=== PATIENT | male | born 1965 | race Caucasian/White ===

== ENCOUNTER 2018-09-01 16:43 | Observation (INO) ==
[2018-09-01 17:15] VITALS: RESP 18; TEMP 98.4
[2018-09-01 18:40] VITALS: BP 111/59; PULSE 60
[2018-09-01] MEDS ORDERED: Sodium Chlor 0.9% Inj 500 ML IV.SIG SCH (20:00)
[2018-09-01 20:08] LABS: Baso % (Auto) 0.4 % (0.0-2.0); Eos # (Auto) 0.4 th/mm3 (0.0-0.4); Eos % (Auto) 6.2 % (0.0-4.0); Hematocrit 35.5 % (39.0-51.0); Hemoglobin 11.6 gm/dL (13.0-17.0); Lymph # (Auto) 1.8 th/mm3 (1.0-4.8); Lymph % (Auto) 25.9 % (9.0-44.0); Mean Corpuscular HGB Conc 32.8 % (32.0-36.0); Mean Corpuscular Hemoglobin 29.6 pg (27.0-34.0); Mean Corpuscular Volume 90.5 fL (80.0-100.0); Mean Platelet Volume 7.8 fL (7.0-11.0); Mono # (Auto) 1.1 th/mm3 (0.0-0.9); Mono % (Auto) 15.6 % (0.0-8.0); Neut # (Auto) 3.7 th/mm3 (1.8-7.7); Neut % (Auto) 51.9 % (16.0-70.0); Platelet Count 365 th/mm3 (150-450); Red Blood Count 3.92 mil/mm3 (4.50-5.90); Red Cell Distribution Width 13.7 % (11.6-17.2)
[2018-09-01 20:13] LABS: Chloride 100 meq/L (98-107); Potassium 3.7 meq/L (3.5-5.1); Sodium 138 meq/L (136-145)
[2018-09-01 20:15] LABS: Calcium 8.1 mg/dL (8.5-10.1)
[2018-09-01 20:16] LABS: Albumin 3.6 g/dL (3.4-5.0); Anion Gap 8 meq/L (5-15); Blood Urea Nitrogen 8 mg/dL (7-18); Carbon Dioxide 30.3 meq/L (21.0-32.0); Glucose,Random 91 mg/dL (74-106); Magnesium 2.2 mg/dL (1.5-2.5)
[2018-09-01 20:19] LABS: Alanine Aminotransferase 58 U/L (12-78); Aspartate Aminotransferase 52 U/L (15-37); Glomerular Filtration Rate 80 mL/min (>89)
[2018-09-01 20:21] VITALS: O2SAT 97
[2018-09-01 20:21] LABS: Bilirubin,Urine Negative (Negative); Clarity,Urine Clear (Clear); Color,Urine Yellow (Yellw/Straw); Glucose,Urine (UA) Negative (Negative); Leukocyte Esterase,Urine Negative (Negative); Nitrite,Urine Negative (Negative); Urobilinogen,Urine 0.2 mg/dL (Less than 2)
[2018-09-01 20:22] LABS: Alkaline Phosphatase 84 U/L (45-117)
[2018-09-01 20:26] LABS: Mucus,Urine Few /lpf (Occasional); RBC,Urine 0-3 /hpf (0-3); WBC,Urine 0-5 /hpf (0-5)
[2018-09-01] MEDS ORDERED: Sodium Chlor 0.9% Inj 500 ML IV.CONT SCH (21:00)
--- NOTE | 2018-09-01 21:04 | CT ---
EXAM DATE: 09/01/2018 8:54 PM EST AGE/SEX: 52 years / Male INDICATIONS: Altered mental status. Slurred speech. General malaise. CLINICAL DATA: This is the patient's initial encounter. Patient reports that signs and symptoms have been present for 1 day and indicates a pain score of 3/10. MEDICAL/SURGICAL HISTORY: None. None. RADIATION DOSE: 56.44 CTDI (mGy) COMPARISON: No prior exams available for comparison. TECHNIQUE: CT of the head without contrast. Using automated exposure control and adjustment of the mA and/or kV according to patient size, radiation dose was kept as low as reasonably achievable to ob tain optimal diagnostic quality images. DICOM format image data is available electronically for revi ew and comparison. FINDINGS: Cerebrum: The ventricles are normal for age. No evidence of midline shift, mass lesion, hemorrhage or acute infarction. No extraaxial fluid collections are seen. Posterior Fossa: The cerebellum and brainstem are intact. The 4th ventricle is midline. The cerebe llopontine angle is unremarkable. Extracranial: The visualized portion of the orbits is intact. Skull: The calvaria is intact. No evidence of skull fracture. CONCLUSION: 1. Unremarkable CT scan of the brain. . Electronically signed by: Azeem Ballard MD 09/01/2018 9:03 PM EST
--- NOTE | 2018-09-01 21:05 | ED ---
HPI General Chief Complaint: Altered Mental Status Stated Complaint: Hearing/Seeing Things/Forgetful x3Days Time Seen by Provider: 09/01/18 18:39 Source: patient Mode of arrival: ambulatory Limitations: no limitations History of Present Illness HPI narrative: Patient presents with history of bipolar disease and also chronic right lumbar pain with Dilaudid pump for treatment. In addition patient has increasing confusion and is not alert and has hallucinations for 3 days. Patient also has history of Lyme disease x3. Patient has no history of recent upper respiratory infection. However patient has had increased swelling of lower extremities for 3 days. No additional neurologic symptomatology. Related Data Home Medications Medication Instructions Recorded Confirmed aspirin [Aspir-Low] 81 mg PO DAILY 09/01/18 09/01/18 clonazepam 1 mg PO BID 09/01/18 09/01/18 clonidine HCl 0.1 mg PO BID 09/01/18 09/01/18 escitalopram oxalate [Lexapro] 10 mg PO DAILY 09/01/18 09/01/18 olanzapine 15 mg PO DAILY 09/01/18 09/01/18 testosterone cypionate 200 mg IM Q4W 09/01/18 09/01/18 Allergies Allergy/AdvReac Type Severity Reaction Status Date / Time divalproex sodium Allergy Unknown rash Verified 09/01/18 17:03 morphine Allergy Unknown rash Verified 09/01/18 17:03 Review of Systems ROS: all other systems reviewed are negative [facility] Medical History Medical History Presence of intrathecal pump (Acute) Bipolar 1 disorder (Acute) Lupus (Acute) Surgical History Surgical History H/O partial thyroidectomy (Acute) Hx of appendectomy (Acute) Hx of cholecystectomy (Acute) Social History Social History Substance History: No History of Abuse Smoking Status: Former smoker How Often Do You Have a Drink Containing Alcohol: Never Recent Travel in [facility] within the Last 8 Weeks: No Recent Out of Country Travel within the Last 8 Weeks: No Immunization History Tetanus Immunization: <5 Years Exam Narrative Exam Narrative: GENERAL: Alert and somewhat confused SKIN: Focused skin assessment warm/dry. HEAD: Atraumatic. Normocephalic. EYES: Pupils equal and round. No scleral icterus. No injection or drainage. ENT: No nasal bleeding or discharge. Mucous membranes pink and moist. NECK: Trachea midline. No JVD. CARDIOVASCULAR: Regular rate and rhythm. No murmur appreciated. RESPIRATORY: No accessory muscle use. Clear to auscultation. Breath sounds equal bilaterally. GASTROINTESTINAL: Abdomen soft, non-tender, nondistended. Hepatic and splenic margins not palpable. MUSCULOSKELETAL: No obvious deformities. No clubbing. No cyanosis. No edema. NEUROLOGICAL: Awake and alert. No obvious cranial nerve deficits. Motor grossly within normal limits. However patient has chronic right-sided lower extremity weakness and paresthesia. Speech impaired compared to normal, from 's bandage point. PSYCHIATRIC: Appropriate mood and affect; insight and judgment normal. Course Reevaluation(s) Reevaluation #1: Multiple evaluations with no significant change. However patient needed to be counseled for him to accept admission and further evaluation. is very supportive. Time: 21:25 Initial Documented Vital Signs Temperature 98.4 F 09/01/18 17:00 Pulse Rate 83 09/01/18 17:00 Respiratory Rate 18 09/01/18 17:00 Blood Pressure 139/78 09/01/18 17:00 Pulse Oximetry 97 09/01/18 17:00 Last Documented Vital Signs Temperature 98.4 F 09/01/18 17:00 Pulse Rate 60 09/01/18 18:40 Respiratory Rate 18 09/01/18 18:40 Blood Pressure 111/59 L 09/01/18 18:40 Pulse Oximetry 97 09/01/18 19:38 Critical Care Time Critical Care Time: Yes Total Critical Care Time: 60 Attestation: Multiple evaluations and evaluation secondary to new onset of altered mental status of 3 days duration. Medical Decision Making MDM Narrative Medical decision making narrative: Patient has significant altered mental status for 3 days. History of Lyme disease x3. Rule out CVA or infectious process. Less likely to be psychogenic in nature. High probability of infectious process secondary to residual of Lyme disease in patients spine Medical Screen Exam Complete: Yes Emergency Medical Condition: Yes Lab Data Result diagrams: 09/01/18 19:52 09/01/18 19:52 Lab Results 09/01/18 09/01/18 09/01/18 Range/Units 19:52 19:52 19:52 CBC w Diff Auto diff final WBC 7.0 (4.0-11.0) th/mm3 RBC 3.92 L (4.50-5.90) mil/mm3 Hgb 11.6 L (13.0-17.0) gm/dL Hct 35.5 L (39.0-51.0) % MCV 90.5 (80.0-100.0) fL MCH 29.6 (27.0-34.0) pg MCHC 32.8 (32.0-36.0) % RDW 13.7 (11.6-17.2) % Plt Count 365 (150-450) th/mm3 MPV 7.8 (7.0-11.0) fL Neut % (Auto) 51.9 (16.0-70.0) % Lymph % (Auto) 25.9 (9.0-44.0) % [place] % (Auto) 15.6 H (0.0-8.0) % Eos % (Auto) 6.2 H (0.0-4.0) % Baso % (Auto) 0.4 (0.0-2.0) % Neut # (Auto) 3.7 (1.8-7.7) th/mm3 Lymph # (Auto) 1.8 (1.0-4.8) th/mm3 [place] # (Auto) 1.1 H (0.0-0.9) th/mm3 Eos # (Auto) 0.4 (0.0-0.4) th/mm3 Baso # (Auto) 0.0 (0.0-0.2) th/mm3 WBC Differential . Differential Comment . Sodium 138 (136-145) meq/L Potassium 3.7 (3.5-5.1) meq/L Chloride 100 (98-107) meq/L Carbon Dioxide 30.3 (21.0-32.0) meq/L Anion Gap 8 (5-15) meq/L BUN 8 (7-18) mg/dL Creatinine 0.99 (0.60-1.30) mg/dL Estimated GFR 80 L (>89) mL/min Random Glucose 91 (74-106) mg/dL Calcium 8.1 L (8.5-10.1) mg/dL Magnesium 2.2 (1.5-2.5) mg/dL Total Bilirubin 0.6 (0.2-1.0) mg/dL AST 52 H (15-37) U/L ALT 58 (12-78) U/L Alkaline Phosphatase 84 (45-117) U/L Troponin I Less than 0.02 L (0.02-0.05) ng/mL B-Natriuretic Peptide 22 (0-100) pg/mL Total Protein 7.0 (6.4-8.2) g/dL Albumin 3.6 (3.4-5.0) g/dL Urine Color (Yellw/Straw) Urine Clarity (Clear) Urine pH (5.0-8.5) Ur Specific [place] (1.002-1.035) Urine Protein (Neg-Trace) mg/dL Urine Glucose (UA) (Negative) mg/dL Urine Ketones (Negative) mg/dL Urine Occult Blood (Negative) Urine Nitrate (Negative) Urine Bilirubin (Negative) Urine Urobilinogen (Less than 2) mg/dL Ur Leukocyte Esterase (Negative) Urine RBC (0-3) /hpf Urine WBC (0-5) /hpf Urine Mucus (Occasional) /lpf Micro UA Comment Ur Microscopic Review Urine Culture Comments 09/01/18 Range/Units 20:15 CBC w Diff WBC (4.0-11.0) th/mm3 RBC (4.50-5.90) mil/mm3 Hgb (13.0-17.0) gm/dL Hct (39.0-51.0) % MCV (80.0-100.0) fL MCH (27.0-34.0) pg MCHC (32.0-36.0) % RDW (11.6-17.2) % Plt Count (150-450) th/mm3 MPV (7.0-11.0) fL Neut % (Auto) (16.0-70.0) % Lymph % (Auto) (9.0-44.0) % [place] % (Auto) (0.0-8.0) % Eos % (Auto) (0.0-4.0) % Baso % (Auto) (0.0-2.0) % Neut # (Auto) (1.8-7.7) th/mm3 Lymph # (Auto) (1.0-4.8) th/mm3 [place] # (Auto) (0.0-0.9) th/mm3 Eos # (Auto) (0.0-0.4) th/mm3 Baso # (Auto) (0.0-0.2) th/mm3 WBC Differential Differential Comment Sodium (136-145) meq/L Potassium (3.5-5.1) meq/L Chloride (98-107) meq/L Carbon Dioxide (21.0-32.0) meq/L Anion Gap (5-15) meq/L BUN (7-18) mg/dL Creatinine (0.60-1.30) mg/dL Estimated GFR (>89) mL/min Random Glucose (74-106) mg/dL Calcium (8.5-10.1) mg/dL Magnesium (1.5-2.5) mg/dL Total Bilirubin (0.2-1.0) mg/dL AST (15-37) U/L ALT (12-78) U/L Alkaline Phosphatase (45-117) U/L Troponin I (0.02-0.05) ng/mL B-Natriuretic Peptide (0-100) pg/mL Total Protein (6.4-8.2) g/dL Albumin (3.4-5.0) g/dL Urine Color Yellow (Yellw/Straw) Urine Clarity Clear (Clear) Urine pH 6.0 (5.0-8.5) Ur Specific [place] 1.010 (1.002-1.035) Urine Protein Negative (Neg-Trace) mg/dL Urine Glucose (UA) Negative (Negative) mg/dL Urine Ketones Negative (Negative) mg/dL Urine Occult Blood Negative (Negative) Urine Nitrate Negative (Negative) Urine Bilirubin Negative (Negative) Urine Urobilinogen 0.2 (Less than 2) mg/dL Ur Leukocyte Esterase Negative (Negative) Urine RBC 0-3 (0-3) /hpf Urine WBC 0-5 (0-5) /hpf Urine Mucus Few H (Occasional) /lpf Micro UA Comment Culture not ind Ur Microscopic Review Microscopic reviewed Urine Culture Comments Culture not ind Imaging Data Radiologist's impression: Head CT 09/01/18 19:38 CONCLUSION: 1. Unremarkable CT scan of the brain. . Discharge Plan Discharge Disposition Patient Disposition: ED Admit(ED Internal Use Only) Discharge Condition Condition: Stable Discharge Details Diagnosis: Acute alteration in mental status Physicians Team ED Provider: Simone Yoa Primary Care Provider: Troy Ponce Rxs /Orders / Referrals /Forms Prescriptions: No Action clonidine HCl 0.1 mg Tablet 0.1 mg PO BID RF: 0 clonazepam 1 mg Tablet 1 mg PO BID RF: 0 aspirin [Aspir-Low] 81 mg Tablet,Delayed Release (Dr/Ec) 81 mg PO DAILY RF: 0 olanzapine 15 mg Tablet 15 mg PO DAILY RF: 0 escitalopram oxalate [Lexapro] 10 mg Tablet 10 mg PO DAILY RF: 0 testosterone cypionate 200 mg/mL Kit 200 mg IM Q4W RF: 0 Discharge Interventions Interventions: Vital Signs Last Done: 09/01/18 18:40 Status ED Status: With Doctor
[2018-09-01] MEDS ORDERED: Bisacodyl 10 MG Supp RECTAL PRN (21:22)
[2018-09-01] MEDS ORDERED: Acetaminophen 325 MG Tablet PO PRN (21:22)
[2018-09-01] MEDS ORDERED: Sod Chloride 0.9% Inj 1,000 ML IV.CONT SCH (21:30)
[2018-09-02] MEDS ORDERED: Senna/Docusate Sodium 8.6/50 MG Tablet PO SCH (09:00)
--- NOTE | 2018-09-02 12:51 | ECG ---
Date Performed: 09/01/2018 Time Performed: 19:51:51 PTAGE: 52 years EKG: Sinus rhythm NORMAL ECG Since the PREVIOUS TRACING , no significant change noted PREVIOUS TRACIN07/04/2016 19.20 DOCTOR: Tadeo Mitchell Interpretating Date/Time 09/02/2018 12:49:45
== END 2018-09-01 22:23 | disposition left against medical advice (07) ==
LOC: PHED 16:43 → PHEDA 16:43
PROVIDERS: ADMIT Internal Medicine; ATTEND Internal Medicine
DX: Z79.82 Long term (current) use of aspirin; G89.29 Other chronic pain; Z87.891 Personal history of nicotine dependence; Z90.49 Acquired absence of other specified parts of digestive tract; Z88.5 Allergy status to narcotic agent; R53.1 Weakness; R41.82 Altered mental status, unspecified; Z86.19 Personal history of other infectious and parasitic diseases; M54.5 Low back pain; F31.9 Bipolar disorder, unspecified